=== PATIENT | female | born 1965 | race Caucasian/White ===

== ENCOUNTER 2023-08-26 19:18 | Emergency (ER) | payer OTHER ==
[~2023-08-26] VITALS: Ht 124.5 cm; Wt 74.8 kg
[2023-08-26 19:34] VITALS: BP 136/82; PULSE 98; RESP 20; TEMP 98.8; O2SAT 98
[2023-08-26] MEDS ORDERED: PRED20TA5 PO ×2 (20:52→21:06)
[2023-08-26] MEDS ORDERED: IBUP-2213 PO ×2 (20:53→21:06)
== END 2023-08-26 21:06 | disposition home or self-care (01) ==
LOC: MED 19:18
DX: R05.9 Cough, unspecified (principal); R07.9 Chest pain, unspecified; Z88.0 Allergy status to penicillin
CPT/HCPCS: 99283